=== PATIENT | male | born 1970 | race Caucasian/White ===

== ENCOUNTER → 2020-02-01 | Outpatient (CLI) | payer BC | LOC: RAD 12:59 | DX: M43.17 Spondylolisthesis, lumbosacral region (principal) ==

== ENCOUNTER → 2020-02-08 | Outpatient (CLI) | payer BC ==
[~2020-02-08] MED LIST: CENTRUM MEN'S1 EACH PO; NEURONTIN 300M300 M2 PO; OXYCODONE-ACET1 EACH PO; ROBAXIN 750 MG750 MG PO; SILDENAFIL CITR50 MG PO; SIMVASTATIN40 MG PO; TESTOSTERONE75 G1 TOP
== END ==
LOC: LAB 09:48
DX: Z01.812 Encounter for preprocedural laboratory examination (principal); Z20.828 Contact with and (suspected) exposure to other viral communicable diseases

== ENCOUNTER 2020-02-14 10:32 | Inpatient (IN) | payer BC ==
[2020-02-08 14:16] LABS: URINE BILIRUBIN NEGATIVE (Negative); URINE BLOOD NEGATIVE (Negative); URINE CLARITY CLEAR; URINE COLOR YELLOW; URINE GLUCOSE-RANDOM* NEGATIVE (Negative); URINE KETONES NEGATIVE (Negative); URINE LEUKOCYTES-REFLEX NEGATIVE (Negative); URINE NITRITE-REFLEX NEGATIVE (Negative); URINE PROTEIN (DIPSTICK) NEGATIVE (Negative); URINE SPECIFIC GRAVITY 1.015 (1.005-1.035); URINE UROBILINOGEN 0.2 E.U./dl (0.2-1.0)
[2020-02-08 14:20] LABS: ABSOLUTE NEUTROPHILS 4.5 thou/uL (1.4-8.2); BASOPHILS 1.1 % (0.0-2.0); EOSINOPHILS 1.5 % (0.0-3.0); HEMATOCRIT 48.2 % (42.0-52.0); HEMOGLOBIN 16.7 gm/dL (14.0-18.0); LYMPHOCYTES 24.2 % (24.0-44.0); MCHC 34.7 g/dL (28.0-37.0); MCV 95.1 fL (80.0-100.0); MONOCYTES 8.1 % (1.0-8.0); PLATELET COUNT 256 thou/uL (150-400); POLYS 65.1 % (36.0-66.0); RBC 5.07 mil/uL (4.50-6.00); RDW 13.9 % (10.5-14.5); WBC 6.9 thou/uL (4.0-11.0)
[2020-02-08 14:30] LABS: APTT 23.6 Seconds (24.5-32.8); PROTIME 9.7 Seconds (9.3-11.4)
[2020-02-08 14:31] LABS: ALBUMIN 4.3 g/dL (3.4-5.0); CALCIUM 9.1 mg/dL (8.5-10.1); POTASSIUM 4.2 mmol/L (3.5-5.1); TOTAL BILIRUBIN 0.6 mg/dL (0.2-1.0)
--- NOTE | 2020-02-08 14:36 | EKG ---
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 SAUCEDO : 1970 Requested By: Deandre Villar Order Number: [id number] MD: Hill Benitez Measurements Intervals [place] Rate: 78 P: 38 MI: 149 QRS: 1 QRSD: 87 T: 27 QT: 367 QTc: 419 Interpretive Statements Sinus rhythm Poor R wave progression Nonspecific ST-T wave change Baseline wander in lead(s) II,aVR,aVF No previous ECG available for comparison Electronically Signed On 02-08-2020 14:36:16 CDT by Hill Benitez [email or web address] <ELECTRONICALLY SIGNED> By: Hill Benitez MD 02/08/20 1436 1411 1411 Hill Benitez MD /EPI
[~2020-02-14] VITALS: Ht 177.8 cm; Wt 104.3 kg
[~2020-02-14 10:32] MED LIST changes: -ROBAXIN 750 MG750 MG PO
[2020-02-14 11:45] VITALS: BP 121/83
[2020-02-14 17:46] VITALS: BP 133/80
[2020-02-14 18:27] VITALS: BP 122/67
[2020-02-14 19:14] VITALS: BP 128/71
--- NOTE | 2020-02-14 20:47 | NUR ---
PATIENT ADMITTED FROM OR WITH LUMBAR DISCECTOMY (L3-L4) (L4-L5), LOW BACK ABD/TEGADERM IN PLACE. KNEE HIGH/LIZA HOSE IN PLACE, SCD'S IN PLACE. 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 RIGHT FOREARM IV IN PLACE. NO C/O NAUSEA, CLEAR LIQUID DIET STARTED. REPORT GIVEN TO EDMUNDO/MARY JANE.
--- NOTE | 2020-02-15 03:15 | NUR ---
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
[2020-02-15 04:13] VITALS: BP 115/62
[2020-02-15 05:21] LABS: ABSOLUTE NEUTROPHILS 12.7 thou/uL (1.4-8.2); BASOPHILS 0.2 % (0.0-2.0); HEMATOCRIT 43.7 % (42.0-52.0); HEMOGLOBIN 14.7 gm/dL (14.0-18.0); LYMPHOCYTES 6.2 % (24.0-44.0); MCH 32.6 pg (26.0-34.0); MCHC 33.8 g/dL (28.0-37.0); MCV 96.6 fL (80.0-100.0); MONOCYTES 5.6 % (1.0-8.0); PLATELET COUNT 228 thou/uL (150-400); RBC 4.52 mil/uL (4.50-6.00); RDW 13.6 % (10.5-14.5); WBC 14.4 thou/uL (4.0-11.0)
[2020-02-15 05:23] LABS: CALCIUM 8.5 mg/dL (8.5-10.1); CREATININE 1.1 mg/dL (0.7-1.3); POTASSIUM 4.4 mmol/L (3.5-5.1)
[2020-02-15 07:35] VITALS: BP 119/64
--- NOTE | 2020-02-15 08:50 | NUR ---
ASSESSMENT: CM REVIEWED CHART AND SPOKE WITH PATIENT. PT IS ALERT AND ORIENTED X4. PT IS HERE DUE TO BILATERAL LAMINECTOMY WITH PARTIAL FACETECTOMY AND NEURAL FORAMINOTOMY OF L4/L4. PT REPORTS THAT HE LIVES IN A HOUSE WITH HIS AND CHILDREN. PT REPORTS HAVING 2 STEPS TO ENTER WITH HANDRAILS. PT REPORTS HE HAS NO STEPS HE HAS TO USE ONCE INSIDE. PT REPORTS HE IS NORMALLY INDEPENDENT WITH ADLS BUT DOES HAVE A WALKER AT HOME. PT REPORTS THAT HE HAS NOT HAD HH IN THE PAST NOR BEEN TO A SNF. PT/OT IS ORDERED TO SEE PATIENT. CM WILL CONTINUE TO FOLLOW TO ASSIST NEEDED.
[2020-02-15] MEDS ORDERED: ROBAXIN 750 MG750 MG PO (14:33)
--- NOTE | 2020-02-15 14:34 | NUR ---
ON-GOING ASSESSMENT: CM REVIEWED CHART AND SPOKE WITH PHYSICAL THERAPY WHO REPORTS PATIENT IS CLEARED TO DISCHARGE HOME. CM MET WITH PATIENT AT THE BEDSIDE AND DISCUSSED IF HE FEELS HE NEEDS HH TO ASSIST WITH DRESSING. PT REPORTS THAT HE DOES NOT FEEL HE NEEDS HOME HEALTH AND THAT HIS CAN ASSIT HIM IF NEEDED. PT DECLINED THE NEED FOR HH AT THIS TIME.
--- NOTE | 2020-02-15 15:03 | O ---
[facility] [place] [address] OPERATIVE REPORT Name: AYDEN BERRY Room #: 439-P ADM IN M.R.#: [id number] Admission: 02/14/20 Attend Phys: Deandre Villar MD Discharge: Date of : 66 Report #: [id number] THIS REPORT FOR: cc: KAI - Family physician unknown FAM - Family physician unknown Deandre Villar MD ~ CC: KAI Villar DATE OF SERVICE: 02/14/2020 PREPROCEDURAL DIAGNOSES: L3-L4 spinal stenosis, right L4-L5 herniated nucleus pulposus, radiculopathy, neurogenic claudication and low back pain. POSTPROCEDURAL DIAGNOSES: L3-L4 spinal stenosis, right L4-L5 herniated nucleus pulposus, radiculopathy, neurogenic claudication and low back pain. PROCEDURE: Bilateral laminectomy with partial facetectomy and neural foraminotomy of L3, bilateral laminectomy with partial facetectomy and neural foraminotomy of L4 and right L4-L5 herniated nucleus pulposus excision, redo. SURGEON: Deandre Villar MD TURNTABLE OPERATOR SURGEON: ALFREDO Villagran ANESTHETIC: General via endotracheal tube. INDICATIONS: The patient has had intractable back and bilateral leg pain with the aforementioned findings. He has proved refractory to all forms of multimodality conservative management. He is requesting we proceed with operative intervention. The patient showed no signs of significant malalignment or instability. The patient was brought to the operating room. After understanding the risks of surgery to be , DVT, pulmonary embolism, paraplegia, loss of bowel and bladder function, loss of sexual function, possibility of bleeding, bleeding requiring transfusion, transfusion attendant risks of AIDS and hepatitis infection, instability, the need for revision, prolonged hospital stay, dural leak, spinal headache, infection and again he requested we proceed. DESCRIPTION OF PROCEDURE: The patient was brought to the operating room and administered general anesthesia via endotracheal tube. Lower extremities were treated with LIZA hose and intermittent compression stockings. He received perioperative antibiotic and he was positioned on the Caden table in the prone position with all bony prominences padded appropriately. Care was taken to ensure that the shoulders were not abducted more than 90 degrees, the elbows flexed more than 90 degrees; there was no undue pressure on the [facility] or [address] [address] OPERATIVE REPORT Name: JAMALAYDEN S Room #: 439-P [facility]#: [id number] Admission: 02/14/20 Attend Phys: Deandre Villar MD Discharge: Date of : 66 Report #: [id number] carpal canals. The area of the anterior superior iliac spine was well padded to protect the lateral femoral cutaneous nerve. Hips and knees were well padded and there was no pressure on the dorsum of the feet. The patient's low back was defatted with alcohol, visualized under fluoroscopy and the pedicles of L3, L4 and L5 were marked on the patient's back. Sharp dissection was continued down through the scar tissue through the subcutaneous tissues to the level of the deep fascia and then care was taken to dissect with cautery exposing the L3, L4, L5 laminas and interspaces. When this was accomplished, noting that L4-L5 was clearly a redo area, the heavy ____ curette was used to remove the fibrofatty tissue at the interspace at L3-L4. We did affix a clamp and obtained fluoroscopy to document our level. With the level documented, we were able to then proceed with the removal of the spinous process of L3 and L4 and this allowed a high speed drill to thin the laminas of L3 and L4 to the anterior cortex. We then used micro curettes to separate the ligamentum flavum from the undersurface of the lamina and then the lamina was resected followed by the ligament. Once we had a central decompression, we started on the cephalad on the right and widened our decompression performing partial facetectomies and ligament resection until we had the lateral recesses completely decompressed. We then performed neural foraminal decompressions of L3 and the L4 nerve root to ensure that these nerve roots were completely unencumbered on their course. Once this was performed on the right, we performed the same procedure on the left; partial facetectomies, neural foraminotomies and ligament resection until the nerve roots were completely free. With the nerve roots completely free, we then moved to the scarred L4-L5 level. Scar was debulked. We widened the margins with a high speed drill and then used micro curettes to separate the scarred dura from the undersurface of the lamina and ligament. The ligament was the main offending structure and this was removed. We then picked up the L5 nerve root just distal to the disk space on the pedicle and dissected medial, protecting it at all times. We then dissected across the disk and there was an extruded fragment that was removed. With the extruded fragment removed, it appeared that the nerve root had complete room. We did continue to perform the diskectomy until it was completely free and there was no evidence of any encumbrance whatsoever across the disk space. We also dissected scarred ligament above the disk space to ensure that this was not an offending structure or tethering the nerve root in any way. When complete, we copiously irrigated. We placed about 4 mg of Decadron on the nerve root. We placed pledgets, thrombin-soaked Gelfoam over both sides after 1 liter of antibiotic irrigant. We obtained meticulous hemostasis, closed the deep fascial layer with 0 Ethibond in [id number] interrupted fashion, deep subQ with 0 Vicryl, superficial subQ with 2-0 Vicryl, and the skin with subcuticular 3-0; dressed with benzoin, Steri-Strips, Xeroform, sterile dressing, sponges and a bioclusive. The patient tolerated the procedure well. Final blood loss was 150 mL. There was no specimen and there were no complications. The patient tolerated the procedure well, being transported to the recovery room for closer neurovascular [address] [address] OPERATIVE REPORT Name: AYDEN BERRY Room #: 439-P [facility]#: [id number] Admission: 02/14/20 Attend Phys: Deandre Villar MD Discharge: Date of : 66 Report #: [id number] observation; continue prophylactic antibiotic and serial neurovascular exams until discharge to the floor. <ELECTRONICALLY SIGNED> By: Deandre Villar MD 02/15/20 1503 1535 1608 Deandre Villar MD /nt
[2020-02-15 15:48] VITALS: BP 119/64
[2020-02-15 16:15] VITALS: BP 123/73
--- NOTE | 2020-02-15 17:23 | NUR ---
Assumed care of pt. at 0700. Pt. is calm and cooperative. Pt. wants to go home today. I changed his dressing per orders. Pt. was discharged after passing PT expectations. Pt. and were educated on dressing changes and given discharge packet. Pt. left with all belongings and .
== END 2020-02-15 17:15 | disposition home or self-care (01) | DRG 517 ==
LOC: OR 10:32 → TBA 10:38 → OR 11:30 → 4S 17:32 → OR 19:00 → 4S 19:01
PROVIDERS: ADMIT Internal Medicine
PROC: 01NB0ZZ Release Lumbar Nerve, Open Approach (ICD-10-PCS; principal; 2020-02-14)
DX: M48.062 Spinal stenosis, lumbar region with neurogenic claudication (principal); M51.16 Intervertebral disc disorders with radiculopathy, lumbar region; E78.5 Hyperlipidemia, unspecified; K59.00 Constipation, unspecified; J30.2 Other seasonal allergic rhinitis; Z88.0 Allergy status to penicillin; Z90.49 Acquired absence of other specified parts of digestive tract
CPT/HCPCS: 10195; 50010; 50101; 50402; 50850; 56529; 62110; 62900; 70005

== ENCOUNTER → 2020-05-07 | Outpatient (CLI) | payer BC ==
[~2020-05-07] MED LIST changes: +ROBAXIN 750 MG750 MG PO
== END ==
LOC: RAD 08:24
DX: M54.2 Cervicalgia (principal)